=== PATIENT | female | born 1995 | race African-American/Black ===

== ENCOUNTER 2016-12-05 15:55 | Emergency (ER) | payer MEDICAID ==
[~2016-12-05] VITALS: Ht 162.6 cm; Wt 61.4 kg
[2016-12-05 16:01] VITALS: BP 112/56; PULSE 62; RESP 16; TEMP 98.5; O2SAT 97
--- NOTE | 2016-12-05 16:05 | PD ---
HPI Chief Complaint: Product Marketing Analyst Problem/Complaint Time Seen by Provider: 16:03 Travel History International Travel<30 days: No Contact w/Intl Traveler<30days: No Traveled to known affect area: No History of Present Illness HPI 21-year-old female patient who is from [place], 3 months by dates with confirmed ultrasound last month, presents to the ER today because she states that she started having small amount of vaginal bleeding while the beach today. She denies any abdominal pains currently. She denies any fevers vomiting or other symptoms. Modifying Factors: None Associated Signs & Symptoms: Small amount of vaginal bleeding, 3 months Risk Factors: Previous history of ectopic PFSH Past Medical History ?: Social History Tobacco Use: No Allergies-Medications (Allergen,Severity, Reaction): Coded Allergies: No Known Allergies (Unverified , 12/05/16) Reported Meds & Prescriptions Reported Meds & Active Scripts Active No Active Prescriptions or Reported Medications Review of Systems Except as stated in HPI: all other systems reviewed are Neg Physical Exam Narrative GENERAL: Well-developed young -[place] female patient currently none acute distress. Awake and oriented 3. SKIN: Focused skin assessment warm/dry. HEAD: Atraumatic. Normocephalic. EYES: Pupils equal and round. No scleral icterus. No injection or drainage. ENT: No nasal bleeding or discharge. Mucous membranes pink and moist. NECK: Trachea midline. No JVD. CARDIOVASCULAR: Regular rate and rhythm. No murmur appreciated. RESPIRATORY: No accessory muscle use. Clear to auscultation. Breath sounds equal bilaterally. GASTROINTESTINAL: Abdomen soft, mild suprapubic tenderness without guarding or rebound, nondistended. Hepatic and splenic margins not palpable. MUSCULOSKELETAL: No obvious deformities. No clubbing. No cyanosis. No edema. NEUROLOGICAL: Awake and alert. No obvious cranial nerve deficits. Motor grossly within normal limits. Normal speech. PSYCHIATRIC: Appropriate mood and affect; insight and judgment normal. Data Data Last Documented VS Vital Signs Date Time Temp Pulse Resp B/P Pulse Ox O2 Delivery O2 Flow Rate FiO2 12/05/16 18:08 66 16 105/53 99 Room Air 12/05/16 16:01 98.5 Orders Beta Hcg (Quant/Titer) (12/05/16 16:03) Complete Blood Count With Diff (12/05/16 16:03) Complete Rh (12/05/16 16:03) Us Pelvis (Ques Preg/Ectopic) (12/05/16 ) Urinalysis - C+S If Indicated (12/05/16 16:03) Labs Laboratory Tests Test 12/05/16 16:12 White Blood Count 5.5 TH/MM3 Red Blood Count 4.01 MIL/MM3 Hemoglobin 12.7 GM/DL Hematocrit 36.8 % Mean Corpuscular Volume 92.0 FL Mean Corpuscular Hemoglobin 31.6 PG Mean Corpuscular Hemoglobin 34.4 % Concent Red Cell Distribution Width 13.6 % Platelet Count 147 TH/MM3 Mean Platelet Volume 9.5 FL Neutrophils (%) (Auto) 63.5 % Lymphocytes (%) (Auto) 29.8 % Monocytes (%) (Auto) 5.2 % Eosinophils (%) (Auto) 1.2 % Basophils (%) (Auto) 0.3 % Neutrophils # (Auto) 3.5 TH/MM3 Lymphocytes # (Auto) 1.6 TH/MM3 Monocytes # (Auto) 0.3 TH/MM3 Eosinophils # (Auto) 0.1 TH/MM3 Basophils # (Auto) 0.0 TH/MM3 CBC Comment DIFF FINAL Differential Comment Urine Color YELLOW Urine Turbidity CLEAR Urine pH 7.0 Urine Specific [place] 1.012 Urine Protein NEG mg/dL Urine Glucose (UA) NEG mg/dL Urine Ketones NEG mg/dL Urine Occult Blood MOD Urine Nitrite NEG Urine Bilirubin NEG Urine Urobilinogen LESS THAN 2.0 MG/DL Urine Leukocyte Esterase NEG Urine RBC LESS THAN 1 /hpf Urine WBC 2 /hpf Urine Squamous Epithelial 3 /hpf Cells Microscopic Urinalysis Comment CULT NOT INDICATED Human Chorionic Gonadotropin, 8315 MIU/ML Quant Blood Type O POSITIVE Rho(D) Type POSITIVE MDM Medical Decision Making Medical Screen Exam Complete: Yes Emergency Medical Condition: Yes Medical Record Reviewed: Yes Interpretation(s) Laboratory Tests Test 12/05/16 16:12 Platelet Count 147 TH/MM3 (150-450) Urine Occult Blood MOD (NEG) Human Chorionic Gonadotropin, 8315 MIU/ML Quant (0-5) Last 24 hours Impressions Pelvis Ultrasound 12/05/16 0000 Signed Impressions: Service Date/Time: Monday, December 05, 2016 17:08 - CONCLUSION: 1. Irregularly-shaped gestational sac with measurements that would be characteristic of 8 week one day gestation. However no pole or yolk sac identified. No free fluid. No adnexal mass. Duane Bolden MD Differential Diagnosis , vaginal bleedingectopic versus threatened AB Narrative Course Is elevated consistent with a week gestation. However, the patient has had ultrasound confirmation and should be 12 weeks. Her ultrasound was done which shows intrauterine with abnormal looking gestational sac and no whole. This is consistent with was likely to be a spontaneous AB. At this point, I have talked to the patient regarding results and patient lives in [place], her [employer]ORE [employer]NA[employer] is in [place]. I have advised that she does pelvic rest, and returns for any worsening in bleeding, pain, and as needed. She needs to follow-up with [employer] STORE [employer] in [place] in a few days. Patient is fairly upset regarding findings, states that she wants to be released to talked her family. Diagnosis Primary Impression: THREATENED Scripts No Active Prescriptions or Reported Meds Disposition: 01 DISCHARGE HOME Condition: Stable SoonGeorgiana garcia MD December 05, 2016 16:05
[2016-12-05 16:47] LABS: AUTOMATED NEUTROPHIL # 3.5 TH/MM3 (1.8-7.7); BASOPHIL % 0.3 % (0.0-2.0); EOSINOPHIL # 0.1 TH/MM3 (0-0.4); EOSINOPHIL % 1.2 % (0.0-4.0); HEMATOCRIT 36.8 % (35.0-46.0); HEMO FLAGS DIFF FINAL; LYMPH % 29.8 % (9.0-44.0); LYMPHOCYTE # 1.6 TH/MM3 (1.0-4.8); MEAN CORPUSCULAR HEMOGLOBIN 31.6 PG (27.0-34.0); MEAN CORPUSCULAR HGB CONC 34.4 % (32.0-36.0); MONO % 5.2 % (0.0-8.0); NEUT % 63.5 % (16.0-70.0); PLATELET COUNT 147 TH/MM3 (150-450); RED BLOOD COUNT 4.01 MIL/MM3 (4.00-5.30); RED CELL DISTRIBUTION WIDTH 13.6 % (11.6-17.2); WHITE BLOOD COUNT 5.5 TH/MM3 (4.0-11.0)
[2016-12-05 16:53] LABS: BLOOD, URINE MOD (NEG); GLUCOSE,URINE NEG (NEG); KETONE, URINE NEG (NEG); NITRITE,URINE NEG (NEG); SQUAMOUS EPITHELIAL CELL URINE 3 /hpf (0-5); URINE COLOR YELLOW (YELLW/STRAW)
[2016-12-05 16:59] LABS: COMMENT (UR) CULT NOT INDICATED; CULTURE IF INDICATED CULT NOT INDICATED
[2016-12-05 18:08] VITALS: BP 105/53; PULSE 66; RESP 16; O2SAT 99
[2016-12-05 18:08] LABS: BETA HCG QUANT 8315 MIU/ML (0-5)
--- NOTE | 2016-12-05 18:46 | RADRPT ---
EXAM DATE/TIME: 12/05/2016 17:08 [facility] COMPARISON: No previous studies available for comparison. INDICATIONS : Bleeding with . LAB(S): [facility] MEDICAL HISTORY : . Ectopic. Right ovarian cysts. SURGICAL HISTORY : Right oophorectomy. ENCOUNTER: Initial ACUITY: 1 day PAIN SCORE: 0/10 LOCATION: Bilateral pelvis MEASUREMENTS: UTERUS: 11.2 x 9.1 x 7.1 cm ENDOMETRIAL STRIPE: >20 mm RIGHT OVARY: Surgically absent LEFT OVARY: 3.0 x 1.7 x 1.5 cm FREE FLUID: No CROWN RUMP LENGTH: Non visualized. = WKS DAYS FHR: Non visualized. BPM FINDINGS: There is an irregularly-shaped fluid collection in the uterus possibly a gestational sac. However no pole is identified. There is some increased vascularity in the surrounding endometrium. Patient reportedly had a right-sided surgical removal of the ovary. Left ovary is unremarkable. No free flui d. CONCLUSION: 1. Irregularly-shaped gestational sac with measurements that would be characteristic of 8 week one da y gestation. However no pole or yolk sac identified. No free fluid. No adnexal mass. Duane Bolden MD on December 05, 2016 at 18:40 Board Certified Radiologist. This report was verified electronically.
== END 2016-12-05 19:03 | disposition home or self-care (01) ==
LOC: NEPD 15:55
DX: O20.0 Threatened abortion (principal); Z3A.00 Weeks of gestation of pregnancy not specified
CPT/HCPCS: 76700; 81001; 84702; 85025; 86901